=== PATIENT | male | born 1980 | race Caucasian/White ===

== ENCOUNTER 2016-12-07 08:01 | Day surgery (SDC) | payer OTHER ==
[2016-12-07] VITALS (7 sets, daily range): BP systolic 109–123; BP diastolic 56–73; PULSE 14–84; RESP 12–18; O2SAT 98–100
[~2016-12-07] VITALS: Ht 179.1 cm; Wt 81.0 kg
[~2016-12-07 08:01] MED LIST: KLO1T PO; Lactated Ringer's 1,000 ML IV ONE
[2016-12-07] MEDS ORDERED: Dexamethasone 4 mg/mL Inj ONE (08:02)
[2016-12-07] MEDS ORDERED: MetoCLOpramide 5 mg/mL 2 mL Inj ONE (08:02)
[2016-12-07] MEDS ORDERED: Propofol 10,000 mCg/mL 20 mL Inj ONE (08:02)
[2016-12-07] MEDS ORDERED: Ondansetron 2 mg/mL 2 mL Inj ONE (08:02)
[2016-12-07] MEDS ORDERED: fentaNYL-PF 50 mCg/mL 2 mL Inj ONE (08:02)
[2016-12-07] MEDS ORDERED: PARO10TA24 PO (08:12)
--- NOTE | 2016-12-07 09:19 | PCM.HPANE ---
Patient Data Surgeon Admitting Provider: Attending Provider:Angelika De Oliveira MD Primary Care Physician:Taurus Mistry MD Other Provider:Eveline Heiningham Anesthesia Reason for Visit Anal And Perianal Condyloma Acuminata Ht/WT & BMI Height (Feet): 5 Height (Inches): 10.50 Weight (Kilograms): 81.0 Body Mass Index 25.00 Allergies Coded Allergies: No Known Allergies (Unverified , 06/01/16) Past Anesthesia History Anesthesia History: Denies:: Anesthesia Reactions Diabetes History Hx Diabetes?: No Medications Home Meds Incl Beta Felice: No Reported Medications Paroxetine (Paxil)10 Mg Tab10 Mg PO DAILY Ref 0 12/07/16 Discontinued Scripts Clonazepam 1 Mg Tablet1 Mg PO BID PRN For Anxiety #10 TABLET Ref 0 Prov:Damon De MD 06/01/16 History History of ENT Problems?: No Hx of Heart Problems?: No Cardiovascular History: Denies:: Congestive Heart Failure Hypertension Hx of Respiratory Problem?: No Respiratory History: Denies:: Oxygen Administration Tuberculosis Use of C-PAP Machine Hx Neurologic Problems?: No Hx of GI Problems?: Yes Other GI Pertinent History: past hx of cryotherapy for anal/perianal condyloma Hx of Problems?: No Genitourinary History: Denies:: Kidney Stones Urinary Tract Infection Male Hx: Denies:: Prostate Problems Hx Musculoskeletal Problems?: No Hx of Psycho/Social Problems?: Yes Psycho Social History: Positive for:: Anxiety Hx Depression Denies:: Suicide Attempt Hx Surgeries?: No (past cryotherapy anal ) Hx Any Other Health Problems?: Yes Other History: Denies:: Cancer Thyroid Disease Hx Diabetes: No Hx Alcohol Use: NoHx Substance Use: Yes (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) Smoking Status: Smoker Current Status UNK Have You Smoked inLast 12 mo: Yes Stop/Bang Treated for Sleep Apnea?: No Do You Have a CPAP Machine?: No S-Snoring: Do You Snore Loudly: No T-Tired: feel tired, fatigued: No O-Obsered: Observed not breath: No P-Blood Pressure: treated: No B- Body Mass Index > 35 kg/m2: No A- Age over 50: No N- Neck Large Circumference: No G- Gender Male: Yes OCTAVIANO Total Score: 1 OCTAVIANO Risk Assessment: Low Risk, <3 Yes Risk Assessment Category Category 1A: Patient has history of documented sleep apnea, and HAS NOT received any narcotic, sedative or anesthesia administration during this stay. Category 1B: Patient has history of documented sleep apnea, and HAS received any narcotic , sedative or anesthesia administration during this stay Category 2: Patient has SUSPECTED Obstructive Sleep Apnea, and HAS received any narcotic , sedative or anesthesia administration during this stay. Category 3: Patient has SUSPECTED Obstructive Sleep Apnea and HAS NOT received narcotic, sedative or anesthesia administration during this stay. Category 4: Outpatient in Procedural Areas with known sleep apnea or who screen positive for High Risk via the STOP/BANG questionnaire. Exam Exam Vital Signs Vital Signs Date Time Temp Pulse Resp B/P Pulse Ox O2 Delivery O2 Flow Rate FiO2 12/07/16 08:30 36.0 77 18 123/73 100 Room Air General Appearance: Oriented X3 HEENT/AIRWAY: MP 2 Lungs: Normal Air Movement Heart: Regular Rate/Rhythm Meds/Labs/Diagnostics Admission Meds Current Medications Lactated Ringer's (Lr) 1,000 ml @ 120 mls/hr Q8H20M ONCE IV Last administered on 12/07/16t 08:07; Start 12/07/16 at 05:00; Stop 12/07/16 at 13:19 Plan Impression Patient chart reviewed, patient interviewed and anesthestic plan with risks, benefits, and alternatives discussed, and informed consent obtained. NPO Status: water at 0600 ASA Physical Status: ASA1 Normal Healthy Anesthetic Plan: GA Bene/Risks/Altern/Consents: Yes HP Complete Prior to Induction: Yes Rolando Rubio MD Dec 07, 2016 09:19
[2016-12-07] MEDS ORDERED: Bupivacaine-MPF 0.25% 30 mL Inj INFILTRATE ONE (09:48)
[2016-12-07] MEDS ORDERED: HYDROcodone-APAP 7.5-325 mg Tablet PO PRN (09:50)
--- NOTE | 2016-12-07 10:26 | PCM.SURGPO ---
Immediate Operative Note Date of Surgery: Dec 07, 2016 Pre Operative Diagnosis Perianal & Anal Condylomata Post Operative Diagnosis Perianal and Anal Condylomata Procedure Rectal Exam under anesthesia Excision of Anal & perianal lesions Surgeon and Accounts Receivable Supervisor Surgeon: Angelika De Oliveira MD Assistants: Brandan Sagastume, PAC Findings Multiple lesions, grossly consistent with condylomata Complications There were no periprocedural complications identified. Surgical Specimen Removed: Yes Specimen sent to Pathology: Yes Surgical Specimen description: 8 specimens, grossly consistent with condylomata Anesthetic Administered: GA Grafts, Implants: None Output, Estimated Blood Loss: 2 Blood Admin during surgery: No Attending Statement Analysis Consultant was medically necessary for the completion of the case Angelika De Oliveira MD Dec 07, 2016 10:26
[2016-12-07] MEDS ORDERED: POLY17PO6 PO (10:27)
[2016-12-07] MEDS ORDERED: HYDR-3825 PO (10:27)
[2016-12-07] MEDS ORDERED: Lactated Ringer's 1,000 ML IV SCH (10:34)
[2016-12-07] MEDS ORDERED: Lactated Ringer's 500 ML IV PRN (10:34)
[2016-12-07] MEDS ORDERED: Dexamethasone 4 mg/mL Inj IVPUSH PRN (10:35)
[2016-12-07] MEDS ORDERED: EPHEDrine Sulfate 50 mg/mL Inj IVPUSH PRN (10:35)
[2016-12-07] MEDS ORDERED: fentaNYL-PF 50 mCg/mL 2 mL Inj IVPUSH PRN (10:35)
[2016-12-07] MEDS ORDERED: MetoCLOpramide 5 mg/mL 2 mL Inj IVPUSH PRN (10:35)
[2016-12-07] MEDS ORDERED: HYDROmorphone 1 mg/mL Inj IVPUSH PRN (10:35)
[2016-12-07] MEDS ORDERED: Ondansetron 2 mg/mL 2 mL Inj IVPUSH PRN (10:35)
[2016-12-07] MEDS ORDERED: Phenylephrine 10,000 mCg/mL Inj IVPUSH PRN (10:35)
--- NOTE | 2016-12-07 11:13 | OP ---
[address] [address] OPERATIVE REPORT PATIENT: MARGUERITE MORALES : 1980 MR#: [id number] ADMIT: 12/07/2016 JOB ID: [id number] DATE OF SURGERY: 12/07/2016 SURGEON: Angelika De Oliveira MD PREOPERATIVE DIAGNOSIS(ES): Multiple anal and perianal condylomata. POSTOPERATIVE DIAGNOSIS(ES): PROCEDURE PERFORMED: Rectal examination under anesthesia with excision of perianal and anal lesions. PERINATAL SOCIAL WORKER: Brandan Sagastume PA-C INDICATION: The patient is a 36-year-old gentleman who has been dealing with anal warts for the last couple of years. He reportedly had a few sessions of cryotherapy, but has not kept up with it. He also tried podophyllin without much improvement, prompting him to request surgical consultation. On examination in the clinic, I noticed lesions all around the anus. Largest ones right at the anal verge. After discussing the risks, benefits, and alternatives, he is here today for rectal examination under anesthesia with excision of lesions. PROCEDURE DETAILS: He was placed in a lithotomy position. After smooth induction of general anesthesia, the perineum was prepped and draped in the usual sterile fashion. Surgical time-out was undertaken using safety checklist, and all were in agreement. I proceeded to infiltrate the perianal region with bupivacaine and then proceeded to excise all the skin lesions in the anus and the perianal skin sharply. Those included: 1. Skin lesion close to the left groin. 2. At 10 o'clock lesion at the anal verge. 3. At 9 o'clock lesion 1 cm from the anal verge. 4. At 6 o'clock lesion at the anal verge. 5. At 4 o'clock lesion 1 cm from the anal verge. 6. At 1 o'clock, 1 cm from the anal verge. 7. At 3 o'clock, 1 cm from the anal verge. 8. At 6 o'clock, 2 cm deep to the anal verge within the anal canal. After this, the excision was complete. Hemostasis was achieved with a combination of pressure and electrocautery. After making sure we got all gross lesions out with good hemostasis, the procedure was terminated and dressing was applied. He was recovered from anesthesia and was taken to the recovery room in stable condition. LELA
--- NOTE | 2016-12-07 12:22 | PCM.ANEP1 ---
Post Anesthesia Phase 1 PACU Phase 1 Assessment Date of Service: Dec 07, 2016 Vital Signs Vital Signs Date Time Temp Pulse Resp B/P Pulse Ox O2 Delivery O2 Flow Rate FiO2 12/07/16 10:45 14 117/66 98 Room Air 12/07/16 10:39 72 12 118/66 98 Room Air 12/07/16 10:35 70 13 114/62 99 Room Air 12/07/16 10:30 36.6 84 12 113/56 100 Simple Mask 10 12/07/16 08:30 36.0 77 18 123/73 100 Room Air Anesthetic Administered: GA Level of Alertness: Awake, talking Pain: No Nausea or Vomiting: No Oxygen Delivery: Room Air Lungs: Normal Air Movement Rolando Rubio MD Dec 07, 2016 12:22
--- NOTE | 2016-12-07 12:22 | PCM.ANEP2 ---
Post Anesthesia Evaluation ASA/CMS Post Anesthesia VS in Patient's Normal Range?: Yes Resp Stable; Airway Patent?: Yes CV Function & Hydration Stable: Yes Mental Status Recovered?: Yes Pain control Satisfactory?: Yes N/V Control Satisfactory?: Yes Rolando Rubio MD Dec 07, 2016 12:22
[2016-12-08] MEDS ORDERED: Polyethylene Glycol (PEG) 17 Gm Powder PO SCH (08:30)
--- NOTE | 2016-12-08 14:48 | PATH ---
SURGICAL PATHOLOGY Attending Physician:Angelika De Oliveira MD CASE STATUS: Signed Out * Amended * PATIENT NAME: MARGUERITE MORALES PID: [id number] : 1980 DATE COLLECTED:12/07/2016 18:07 SPECIMEN: 1: Skin, biopsy 2: Skin, Skin Tag 3: Skin, Skin Tag 4: Skin, Skin Tag 5: Skin, Skin Tag 6: Skin, Skin Tag 7: Skin, Skin Tag 8: Skin, Skin Tag CLINICAL HISTORY: 1: SKIN LESION LEFT GROIN 2: 10 O' CLOCK @ ANAL VERGE 3: 9 O' CLOCK 1 CM FROM ANAL VERGE 4: 6 O' CLOCK @ ANAL VERGE 5 : 4 O' CLOCK 1CM FROM ANAL VERGE 6: 1 O' CLOCK 1CM FROM ANAL VERGE 7: 3 O' CLOCK 1CM FROM ANAL VERGE 8: 6 O' CLOCK 2CM DEEP TO THE ANAL VERGE FINAL DIAGNOSIS: 1. Skin, Left Groin: Polypoid intradermal melanocytic nevus, negative for atypia. 2. Biopsy 10 o'clock at Anal Verge: Anal wart. 3. 9 o'clock Biopsy, 1 cm from Anal Verge: Anal wart. 4. Biopsy 6 o'clock at Anal Verge: Anal wart. 5. 4 o'clock, 1 cm from Anal Verge: Anal wart. 6. Biopsy 1 o'clock, 1 cm from Anal Verge: Anal Wart. 7. Biopsy 3 o'clock, 1 cm from Anal Verge: Anal wart with adjacent changes consistent with low-grade squamous intraepithelial lesion (AIN 1). 8. Biopsy 6 o'clock, 2 cm Deep to the Anal Verge: High-grade squamous intraepithelial lesion (AIN 2). ICD10 K62.82 NOTE: AMENDMENT 2. In discussions with Dr. Angelika De Oliveira, the specimen in part 2 should be designated 10 o' clock at anal verge rather than 10 o' clock at anal wart as it was originally labeled. This report is dictated at this time in oder to make this single correction. AMENDMENT Per request from Dr. Angelika De Oliveira, all parts should reflect "anal verge" instead of "anal wart". This report is done to complete this change. GROSS DESCRIPTION: The specimen is received in eight formalin filled containers labeled with the patient's name. 1. The specimen is sublabeled "skin lesion left groin" and consists of a 0.5 x 0.4 x 0.5 CM cook-mcgovern rough dome-shaped piece of skin. Inked blue bisected and entirely submitted in cassette 1A. 2. The specimen is sublabeled "10:00 at anal verge" and consists of a cook-mcgovern rough dome-shaped a portion of skin which measures 1.5 x 0.5 x 0.9 CM. The specimen is inked blue. The specimen is sectioned into 4 pieces and entirely submitted in cassette 2A. 3. The specimen is sublabeled "9:00 one CM from anal verge" and consists of 4 cook-mcgovern rough dome-shaped portions of skin which range in size from 0.3-0.7 CM. The specimen is entirely submitted in cassette 3A. 4). The specimen is sublabeled "6:00 at anal verge" and consists of a 0.7 x 0.6-0.5 CM cook-mcgovern friable portion of tissue. The specimen is trisected and totally submitted in cassette 4A. . 5). The specimen is sublabeled "4:00, one CM from anal verge" and consists of multiple cook-mcgovern friable portions of tissue which aggregate to 1.0 x 1.0 x 0.6 CM. The smallest portions are totally submitted in cassette 5A. The largest portions are sectioned and submitted in the same cassette. 6). The specimen is sublabeled "1:00, one CM from anal verge" and consists of multiple light shultz rough portions of tissue which aggregate to 0.4 x 0.4 x 0.4 CM. The specimens are totally submitted in cassette 6A. 7). The specimen is sublabeled "3:00, one CM from anal verge" and consists of multiple portions of cook-mcgovern rough tissue which aggregate to 0.6 x 0.5 x 0.3 CM. The specimen is entirely submitted in cassette 7A. 8). The specimen is sublabeled "6:00, 2 CM deep to the anal verge" and consists of a 0.6-0.4 x 0.4 CM pink-mcgovern friable portion of tissue. The specimen is bisected and totally submitted in cassette 8A. 12/07/2016 [facility] ICD-9 CODES: CPT CODES: 1: 40105, 99620, 27973, 88601, 87185, 56035, 08316, 03587 AMENDMENT(S): Amended: 12/25/2016 by Susannah Harding Reason:Typographical Error Previous Signout Date: 12/08/2016 Amended: 01/05/2017 by Margie Newton Reason:Typographical Error Per Dr. Angelika De Oliveira, would like the specimens to state "verge" instead of "wart". Previous Signout Date: 12/25/2016 Electronically Signed Out Deacon Drake MD [facility] Pathology [facility] [address], [place] [address] Technical component performed at [facility], [facility] [address], [place], [address]
== END 2016-12-07 23:59 | disposition home or self-care (01) ==
LOC: SAS 08:01
PROVIDERS: ATTEND Student in an Organized Health Care Education/Training Program
DX: K62.82 Dysplasia of anus (principal); A63.0 Anogenital (venereal) warts; D22.5 Melanocytic nevi of trunk; F17.290 Nicotine dependence, other tobacco product, uncomplicated; F11.21 Opioid dependence, in remission
CPT/HCPCS: 11421; 46922; 88305; J1100; J2250; J2405; J2765; J7120